=== PATIENT | female | born 1955 | race Caucasian/White ===

== ENCOUNTER → 2019-06-19 | Outpatient (CLI) | payer MEDICARE, OTHER ==
--- NOTE | 2019-06-19 10:51 | RADIOLOGY REPORT (SQ) ---
EXAM DESCRIPTION: MRI LT LOWER JOINT WITHOUT COMPLETED DATE/TIME: 06/19/2019 9:00 am REASON FOR STUDY: LEFT KNEE PAIN (M25.562) M25.562 PAIN IN LEFT KNEE COMPARISON: None. TECHNIQUE: Non arthrogram MRI leftknee images acquired and stored on PACS. Multiplanar images inclu de fat sensitive sequences as T1, water sensitive sequences as FST2 or STIR, cartilage sensitive sequ ences as FSPD, and gradient echo sequences. LIMITATIONS: None. FINDINGS: JOINT AND BURSAE: Physiologic joint space fluid. Small Andrade's cyst. Minimal prepatellar edema. BONE CORTEX AND MARROW: No marrow signal abnormalities worrisome for occult fracture or aggressive ma rrow replacement process ACL: Intact. No degeneration or ganglion cyst. PCL: Intact. MCL: Intact. No periligamentous edema or fluid. LCL: Intact. No periligamentous edema or fluid. MEDIAL MENISCUS: Diffuse complex tear throughout the medial. Small parameniscal adjacent to anterior horn on sagittal image 7 and 8. LATERAL MENISCUS: No tears. No abnormal signal. MEDIAL COMPARTMENT: Marked chondromalacia along the proximal tibia with reactive subcortical edema. No bulky bony spurring. 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 LATERAL COMPARTMENT: Cartilage preserved. No bone bruises or reactive marrow edema. No osteophytes. PATELLA: No chondromalacia. No subchondral cysts. Medial and lateral retinacula intact. EXTENSOR MECHANISM: Intact. Quadriceps and patella tendons normal. SOFT TISSUES: There is very mild prepatellar fluid likely in the prepatellar bursa. OTHER: No other significant finding. IMPRESSION: Complex tear medial meniscus Significant chondromalacia medial compartment TECHNICAL DOCUMENTATION: JOB ID: [id number] [employer]- All Rights Reserved Reading location - IP/workstation name: [email or web address]
== END ==
LOC: RAD 07:00
PROVIDERS: ATTEND Nurse Practitioner Family
DX: S83.232A Complex tear of medial meniscus, current injury, left knee, initial encounter (principal); X58.XXXA Exposure to other specified factors, initial encounter; M94.262 Chondromalacia, left knee; M25.562 Pain in left knee